=== PATIENT | female | born 1975 | race African-American/Black ===

== ENCOUNTER 2018-02-04 14:21 | Emergency (ER) | payer OTHER ==
[2018-02-04] MEDS ORDERED: Ondansetron ODT 4 MG TAB ONE (14:40)
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
== END 2018-02-04 15:55 | disposition home or self-care (01) ==
LOC: ERS 14:21
DX: S09.90XA Unspecified injury of head, initial encounter (principal); S16.1XXA Strain of muscle, fascia and tendon at neck level, initial encounter; V89.2XXA Person injured in unspecified motor-vehicle accident, traffic, initial encounter
CPT/HCPCS: 70450; 72125; Q0162